=== PATIENT | female | born 1955 | race Caucasian/White ===

== ENCOUNTER 2025-06-14 10:03 | Day surgery (SDC) | payer MEDICARE, OTHER ==
[2025-06-13 10:07] VITALS: BMI 32.1
[2025-06-14] MEDS ORDERED: PROPOFOL 20 ML ONE (10:22)
[2025-06-14] MEDS ORDERED: Rocuronium Bromide 10 MG/ML (10ML VIAL) ONE (10:23)
[2025-06-14] MEDS ORDERED: Lidocaine 1% PF 5 ML VIAL ONE (10:23)
[2025-06-14] MEDS ORDERED: Bacitracin 1 PK ONE (10:37)
[2025-06-14] MEDS ORDERED: Lidocaine 1% w/Epinephrine 1:200K 30 ML VIAL ONE (10:37)
[2025-06-14 10:49] LABS: Hematocrit 38.5 % (34.9-44.5); Hemoglobin 12.2 g/dL (12.0-15.5)
[2025-06-14] MEDS ORDERED: AFRIN NASAL MIST 15 ML BOT ONE (10:51)
[2025-06-14] MEDS ORDERED: Ondansetron PF 4 MG/2 ML Vial ONE ×2 (11:19→13:45)
[2025-06-14] MEDS ORDERED: SUGAMMADEX SODIUM 200 MG/2 ML VIAL ONE (11:19)
[2025-06-14] MEDS ORDERED: Oxymetazoline HCl 0.05% (15 ML) ONE (11:19)
[2025-06-14 11:35] LABS: Anion Gap 12 mmol/L (10-20); BUN (Urea Nitrogen) 18 mg/dL (9.8-20.1); Calc. Creatinine Clearance 85 mL/min (70-130); Calcium 9.3 mg/dL (7.8-10.44); Carbon Dioxide 26 mmol/L (23-31); Chloride 107 mmol/L (98-107); Glucose 84 mg/dL (80-115); Potassium 4.4 mmol/L (3.5-5.1); Sodium 141 mmol/L (136-145)
[2025-06-14] MEDS ORDERED: Albuterol HFA (OR) 200 PUFF INH ONE (11:44)
[2025-06-14] MEDS ORDERED: EPINEPHrine 1 MG/10 ML Abboject SYRINGE ONE (11:44)
[2025-06-14] MEDS ORDERED: oxyCODONE 5 MG TAB ONE (12:51)
== END 2025-06-14 14:00 | disposition home or self-care (01) ==
LOC: CSHSDC 10:03
PROVIDERS: ATTEND Otolaryngology Plastic Surgery within the Head & Neck
PROC: 099R8ZZ Drainage of Left Maxillary Sinus, Via Natural or Artificial Opening Endoscopic (ICD-10-PCS; principal; 2025-06-14)
PROC: 099W8ZZ Drainage of Right Sphenoid Sinus, Via Natural or Artificial Opening Endoscopic (ICD-10-PCS; 2025-06-14)
PROC: 099X8ZZ Drainage of Left Sphenoid Sinus, Via Natural or Artificial Opening Endoscopic (ICD-10-PCS; 2025-06-14)
PROC: 099Q8ZZ Drainage of Right Maxillary Sinus, Via Natural or Artificial Opening Endoscopic (ICD-10-PCS; 2025-06-14)
PROC: 09TV8ZZ Resection of Left Ethmoid Sinus, Via Natural or Artificial Opening Endoscopic (ICD-10-PCS; 2025-06-14)
PROC: 09TU8ZZ Resection of Right Ethmoid Sinus, Via Natural or Artificial Opening Endoscopic (ICD-10-PCS; 2025-06-14)
DX: J32.8 Other chronic sinusitis (principal); J30.81 Allergic rhinitis due to animal (cat) (dog) hair and dander; J30.1 Allergic rhinitis due to pollen; J33.9 Nasal polyp, unspecified; I10 Essential (primary) hypertension; E78.5 Hyperlipidemia, unspecified; H91.90 Unspecified hearing loss, unspecified ear; Z90.710 Acquired absence of both cervix and uterus; Z88.0 Allergy status to penicillin
CPT/HCPCS: 31256; 31259; 31287; 61782; 80048; 85014; 85018; J0165; J1100; J2704